=== PATIENT | male | born 1930 | race African-American/Black ===

== ENCOUNTER 2019-09-13 18:07 | Inpatient (IN) | payer MEDICARE, OTHER ==
[~2019-09-13] VITALS: Ht 180.3 cm; Wt 81.6 kg
[~2019-09-13 18:07] MED LIST: AMLO10TA4 PO; ISOS1TAB PO; TAMS-11 PO
[2019-09-13] MEDS ORDERED: SODIUM CHLORIDE 0.9% 500 ML IV ONE (20:47)
[2019-09-13 21:23] LABS: CHLORIDE 108 mEq/L (98-107)
[2019-09-13 21:24] LABS: INR 1.2; PROTHROMBIN TIME 12.5 sec (9.6-11.0)
[2019-09-13 21:30] LABS: HEMATOCRIT. 41.6 % (42.0-52.0); HEMOGLOBIN. 13.8 g/dL (14.0-18.0); MEAN CORPUSCULAR HEMOGLOBIN 28.5 pg (28.0-32.0); MEAN CORPUSCULAR VOLUME 85.7 fL (80.0-94.0); MEAN PLATELET VOLUME 8.8 fl (7.4-10.4); PLATELET 402 x1000/uL (130-400); RED BLOOD CELL COUNT 4.85 mill/uL (4.7-6.1); RED CELL DISTRIBUTION WIDTH 16.5 % (11.6-14.6)
[2019-09-13 22:07] LABS: PLATELET ESTIMATE INCREASED
[2019-09-13] MEDS ORDERED: KCL 20MEQ/100ML PREMIX 100 ML IV ONE (22:15)
[2019-09-13] MEDS ORDERED: PIPERACILLIN/TAZ 3.375G PREMIX 50 ML IV ONE (22:15)
[2019-09-14] VITALS (26 sets, daily range): BP systolic 58–155; BP diastolic 14–102
[2019-09-14 00:39] LABS: CLARITY URINE CLEAR (CLEAR); COLOR URINE DARK YELLOW (YELLOW); KETONES URINE TRACE (NEGATIVE); LEUKOCYTE ESTERASE URINE 1+ (NEGATIVE); NITRITE URINE NEGATIVE (NEGATIVE); OCCULT BLOOD URINE NEGATIVE (NEGATIVE); PH URINE 5.5 (4.5-8.0); PROTEIN URINE 1+ (NEGATIVE); SPECIFIC GRAVITY URINE 1.024 (1.005-1.030)
[2019-09-14] MEDS ORDERED: EPINEPHRINE 0.1MG/ML (1:10,000) 10ML SYR ONE ×2 (07:00→17:00)
[2019-09-14] MEDS ORDERED: ATROPINE SULFATE 1MG/10ML SYR ONE ×2 (07:00→17:00)
[2019-09-14] MEDS ORDERED: DEXT 5%/0.45% NACL 1000ML 1,000 ML IV SCH (08:15)
[2019-09-14] MEDS ORDERED: ONDANSETRON HCL 4MG/2ML INJ IV PRN (08:15)
[2019-09-14] MEDS ORDERED: MORPHINE SULFATE 2 MG/ML CPJ (NOT FOR IM USE) IV PRN (08:15)
[2019-09-14] MEDS: PIPERACILLIN/TAZOBACTAM 3.375 G in DEXT 5% WATER 100 ML IV SCH ×3 (10:30→23:09)
[2019-09-14] MEDS ORDERED: DILT90TA2 MT (10:50)
[2019-09-14] MEDS ORDERED: LOSA25TA26 MT (10:55)
[2019-09-14] MEDS ORDERED: LOSA100T32 PO (10:55)
[2019-09-14] MEDS ORDERED: TAMS-11 PO (10:55)
[2019-09-14] MEDS ORDERED: APIX5TAB PO (10:55)
[2019-09-14] MEDS ORDERED: AMIO100T4 PO (10:55)
[2019-09-14] MEDS ORDERED: HYDRALAZINE 20MG/ML VIAL IV PRN (12:30)
[2019-09-14] MEDS ORDERED: DIATR MEGLU/DIATRIZOATE SOLN 120ML ONE (13:40)
[2019-09-14 13:51] LABS: HEMATOCRIT. 38.1 % (42.0-52.0); HEMOGLOBIN. 12.7 g/dL (14.0-18.0); MEAN CORPUSCULAR HEMOGLOBIN 28.5 pg (28.0-32.0); MEAN CORPUSCULAR VOLUME 85.4 fL (80.0-94.0); MEAN PLATELET VOLUME 8.6 fl (7.4-10.4); PLATELET 372 x1000/uL (130-400); RED BLOOD CELL COUNT 4.46 mill/uL (4.7-6.1)
[2019-09-14 14:01] LABS: CHLORIDE 111 mEq/L (98-107)
[2019-09-14 14:33] LABS: PLATELET ESTIMATE NORMAL
[2019-09-14] MEDS ORDERED: DILTIAZEM HCL 5MG/ML 5ML VIAL IV PRN (16:15)
[2019-09-14] MEDS ORDERED: CALCIUM CHLORIDE 1GM/10ML SYR IV ONE (17:00)
[2019-09-14] MEDS ORDERED: SODIUM BICARBONATE 8.4% 1 MEQ/ML 50ML SYR IV ONE ×2 (17:00→19:00)
[2019-09-14] MEDS ORDERED: NOREPINEPHRINE 4 MG in DEXT 5% WATER 246 ML IV PRN (18:15)
[2019-09-14] MEDS ORDERED: NOREPINEPHRINE 16 MG in DEXT 5% WATER 246 ML IV PRN (18:26)
[2019-09-14] MEDS: DOPAMINE 400MG/250ML PREMIX 250 ML IV PRN ×2 (18:28→21:19)
[2019-09-14] MEDS ORDERED: PHENYLEPHRINE 20 MG in DEXT 5% WATER 248 ML IV PRN (18:30)
[2019-09-14] MEDS: EPINEPHRINE 1 MG in SODIUM CHLORIDE 0.9% 249 ML IV PRN ×3 (18:44→23:10)
[2019-09-14] MEDS ORDERED: NOREPINEPHRINE 16 MG in DEXTROSE 5% WATER 250 ML IV PRN (18:45)
[2019-09-14 18:54] LABS: BG BASE EXCESS -13.8 mmol/L (-2.0-2.0); BG CARBOXYHEMOGLOBIN 0.5 % (0.5-1.5); BG DEOXYHEMOGLOBIN 1.1 % (0.0-5.0); BG FRACTION INSPIRED OXYGEN 100; BG HCO3 ACT 16.1 mmol/L (22.0-26.0); BG METHEMOGLOBIN 0.2 % (0.0-1.5); BG OXYGEN SATURATION 98.9 % (92.0-98.5); BG OXYHEMOGLOBIN 98.2 % (94.0-97.0); BG PCO2 54.2 mmHg (35.0-45.0); BG PO2 194.4 mmHg (75.0-100.0); BG SAMPLE SITE RIGHT RADIAL; BG TIDAL VOLUME(mL) 500 mL; BG TOTAL HEMOGLOBIN 12.9 g/dL (12.0-18.0); BG VENT MODE VENT - A/C; BG VENT RATE 18 set
[2019-09-14] MEDS ORDERED: PROPOFOL 10MG/ML 100ML 100 ML IV PRN (19:00)
[2019-09-14] MEDS ORDERED: SODIUM BICARBONATE 150 MEQ in DEXT 5%/0.45% NACL 1000ML 1,000 ML IV SCH (20:00)
[2019-09-14] MEDS: NOREPINEPHRINE 16 MG in DEXT 5% WATER 234 ML IV PRN (20:32)
[2019-09-14] MEDS ORDERED: PANTOPRAZOLE SODIUM 40 MG/VIAL IV SCH (21:00)
[2019-09-14] MEDS: PHENYLEPHRINE 40 MG in DEXT 5% WATER 246 ML IV PRN (21:18)
[2019-09-14 22:32] LABS: BG BASE EXCESS -16.2 mmol/L (-2.0-2.0); BG CARBOXYHEMOGLOBIN 0.9 % (0.5-1.5); BG DEOXYHEMOGLOBIN 8.1 % (0.0-5.0); BG FRACTION INSPIRED OXYGEN 70; BG HCO3 ACT 14.3 mmol/L (22.0-26.0); BG METHEMOGLOBIN 0.3 % (0.0-1.5); BG OXYGEN SATURATION 91.8 % (92.0-98.5); BG OXYHEMOGLOBIN 90.7 % (94.0-97.0); BG PH 7.056 (7.350-7.450); BG PO2 83.8 mmHg (75.0-100.0); BG SAMPLE SITE RIGHT RADIAL; BG TIDAL VOLUME(mL) 500 mL; BG TOTAL HEMOGLOBIN 14.1 g/dL (12.0-18.0); BG VENT MODE VENT - A/C; BG VENT RATE 24 set
[2019-09-14] MEDS ORDERED: SODIUM BICARBONATE 8.4% 1 MEQ/ML 50ML SYR IV NR (23:00)
[2019-09-14 23:29] LABS: HEMATOCRIT 44.8 % (42.0-52.0)
[2019-09-15] VITALS (22 sets, daily range): BP systolic 46–128; BP diastolic 17–56
[2019-09-15] MEDS: PHENYLEPHRINE 40 MG in DEXT 5% WATER 246 ML IV PRN ×2 (00:27→04:09)
[2019-09-15] MEDS: EPINEPHRINE 1 MG in SODIUM CHLORIDE 0.9% 249 ML IV PRN ×3 (00:47→04:08)
[2019-09-15] MEDS: DOPAMINE 400MG/250ML PREMIX 250 ML IV PRN (01:03)
[2019-09-15] MEDS ORDERED: DOPAMINE 800MG PREMIX (DOUBLE) 250 ML IV PRN (01:15)
[2019-09-15] MEDS: PIPERACILLIN/TAZOBACTAM 3.375 G in DEXT 5% WATER 100 ML IV SCH (03:14)
[2019-09-15] MEDS: NOREPINEPHRINE 16 MG in DEXT 5% WATER 234 ML IV PRN (04:09)
[2019-09-15 05:31] LABS: BASOPHILS % 0.1 % (0.0-2.0); HEMATOCRIT. 40.2 % (42.0-52.0); HEMOGLOBIN. 12.6 g/dL (14.0-18.0); LYMPHOCYTES % 8.4 % (20.0-50.0); MEAN CORPUSCULAR HEMOGLOBIN 28.8 pg (28.0-32.0); MEAN CORPUSCULAR VOLUME 91.7 fL (80.0-94.0); MONOCYTES % 5.4 % (2.0-8.0); NEUTROPHILS % 86.1 % (40.0-76.0); RED BLOOD CELL COUNT 4.39 mill/uL (4.7-6.1); RED CELL DISTRIBUTION WIDTH 18.1 % (11.6-14.6)
[2019-09-15 05:38] LABS: INR 1.7; PARTIAL THROMBOPLASTIN TIME 43.9 sec (23.4-31.0); PROTHROMBIN TIME 16.9 sec (9.6-11.0)
[2019-09-15 05:39] LABS: CHLORIDE 106 mEq/L (98-107)
[2019-09-15 07:48] LABS: MEAN PLATELET VOLUME 9.4 fl (7.4-10.4); PLATELET 283 x1000/uL (130-400)
== END 2019-09-15 06:42 | disposition expired | DRG 871 ==
LOC: ER 18:07 → EDBEDREQ 22:15 → 8WST 09-14 00:54 → EDBEDREQTM 09-14 00:57 → EDBEDREQ 09-14 00:57 → EDBEDREQDT 09-14 00:57 → EDBEDREQSVC 09-14 00:57 → ENRESERV 09-14 07:12 → MICUNO 09-14 17:50
PROVIDERS: ADMIT Internal Medicine; ATTEND Internal Medicine
PROC: 5A12012 Performance of Cardiac Output, Single, Manual (ICD-10-PCS; principal; 2019-09-14)
PROC: 5A1935Z Respiratory Ventilation, Less than 24 Consecutive Hours (ICD-10-PCS; 2019-09-14)
PROC: 0BH17EZ Insertion of Endotracheal Airway into Trachea, Via Natural or Artificial Opening (ICD-10-PCS; 2019-09-14)
DX: A41.9 Sepsis, unspecified organism (principal); E43 Unspecified severe protein-calorie malnutrition; K57.33 Diverticulitis of large intestine without perforation or abscess with bleeding; K56.600 Partial intestinal obstruction, unspecified as to cause; N17.9 Acute kidney failure, unspecified; D64.9 Anemia, unspecified; E87.6 Hypokalemia; E87.8 Other disorders of electrolyte and fluid balance, not elsewhere classified; I10 Essential (primary) hypertension; I48.91 Unspecified atrial fibrillation; Z66 Do not resuscitate; I46.9 Cardiac arrest, cause unspecified; K44.9 Diaphragmatic hernia without obstruction or gangrene; K80.20 Calculus of gallbladder without cholecystitis without obstruction; N40.0 Benign prostatic hyperplasia without lower urinary tract symptoms; Z79.01 Long term (current) use of anticoagulants; Z86.711 Personal history of pulmonary embolism; Z68.25 Body mass index [BMI] 25.0-25.9, adult; Z79.899 Other long term (current) drug therapy
CPT/HCPCS: 36415; 36600; 71045; 74176; 74270; 80048; 81003; 82375; 82805; 83605; 84145; 84478; 85014; 85018; 92950; 93005; 93970; 94003; 96361; 96365; 96366; 96368; 99285; C9113; J0461; J1265; J2370; J2543; J3480; J3490; J7040; J7050; J7060; Q9963